=== PATIENT | male | born 1960 | race Caucasian/White ===

== ENCOUNTER → 2024-08-01 | Outpatient (CLI) | payer BC, SELFPAY ==
--- NOTE | 2024-08-01 12:04 | XR_ITS ---
Examination: PA lateral chest 2 views TECHNIQUE: Upright PA lateral chest 2 views Exam date and time: August 01, 2024 1239 hours INDICATIONS: Coughing beginning 4 months ago. FINDINGS: Moderate size The lungs are clear. The osseous structures are intact IMPRESSION: No active disease
[2024-08-01 13:49] LABS: Basophils # (Auto) 0.1 Thou/mm3 (0.0-0.2); Basophils % (Auto) 1 % (0-2.5); Eosinophils # (Auto) 0.1 Thou/mm3 (0.0-0.5); Eosinophils % (Auto) 2 % (0-10); Hematocrit 45.3 % (41.0-53.0); Immature Granulocytes % (Auto) 0 % (0-0); Immature Granulocytes Auto 0.01 Thou/mm3 (0.00-0.00); Lymphocytes # (Auto) 1.9 Thou/mm3 (1.0-4.8); Lymphocytes % (Auto) 41 % (10-50); Mean Corpuscular HGB Conc 35.3 g/dl (31.0-37.0); Mean Corpuscular Volume 91 fL (80-100); Monocytes # (Auto) 0.4 Thou/mm3 (0.0-0.8); Monocytes % (Auto) 8 % (0-12); Neutrophils # (Auto) 2.2 Thou/mm3 (1.8-7.7); Neutrophils % (Auto) 47 % (37-80); Nucleated Red Blood Cell % 0 /100 WBC (0); Platelet Count 191 Thou/mm3 (140-440); RDW Standard Deviation 42.6 fL (35.1-43.9); White Blood Count 4.6 Thou/mm3 (3.8-10.6)
[2024-08-02 13:24] LABS: Cocci Serology, IgM Negative (Negative)
[2024-08-03 13:51] LABS: Cocci Serology, IgG Negative (Negative)
== END | disposition home or self-care (01) ==
LOC: CDIM 12:00 → COPL 12:44
PROVIDERS: PCP Family Medicine; Referring Provider Registered Nurse; Visit Provider Radiology Diagnostic Radiology
DX: R06.02 Shortness of breath (principal); R05.2 Subacute cough; Z21 Asymptomatic human immunodeficiency virus [HIV] infection status
CPT/HCPCS: 36415; 71046; 85025; 86331; 86635; 87205

== ENCOUNTER → 2024-08-02 | Outpatient (CLI) | payer BC, SELFPAY | END | disposition home or self-care (01) | LOC: SLDO 07:20 | PROVIDERS: PCP Family Medicine; Referring Provider Registered Nurse; Visit Provider Registered Nurse | DX: R06.02 Shortness of breath (principal); R05.2 Subacute cough; Z21 Asymptomatic human immunodeficiency virus [HIV] infection status | CPT/HCPCS: 87205 ==

== ENCOUNTER → 2024-09-08 | Outpatient (CLI) | payer BC, SELFPAY ==
[2024-09-08 11:43] LABS: Glucose Estimated Average 114 mg/dL (80-131); Hemoglobin A1C 5.6 % Hgb (4.8-6.0)
[2024-09-08 11:51] LABS: Prostate Specific Antigen 0.47 ng/mL (0-4.00)
== END | disposition home or self-care (01) ==
LOC: COPL 10:16
PROVIDERS: PCP Registered Nurse; Referring Provider Registered Nurse; Visit Provider Registered Nurse
DX: Z00.00 Encounter for general adult medical examination without abnormal findings (principal)
CPT/HCPCS: 36415; 83036; 84153

== ENCOUNTER → 2024-10-26 | Outpatient (CLI) | payer BC, SELFPAY ==
[2024-10-26 16:29] LABS: Basophils % (Auto) 1 % (0-2.5); Eosinophils # (Auto) 0.1 Thou/mm3 (0.0-0.5); Eosinophils % (Auto) 4 % (0-10); Hematocrit 41.1 % (41.0-53.0); Hemoglobin 14.7 g/dL (13.5-16.0); Immature Granulocytes % (Auto) 0 % (0-0); Lymphocytes # (Auto) 1.8 Thou/mm3 (1.0-4.8); Lymphocytes % (Auto) 46 % (10-50); Mean Corpuscular HGB Conc 35.8 g/dl (31.0-37.0); Mean Corpuscular Hemoglobin 32.1 pg (25.0-35.0); Mean Corpuscular Volume 90 fL (80-100); Monocytes # (Auto) 0.3 Thou/mm3 (0.0-0.8); Monocytes % (Auto) 8 % (0-12); Neutrophils # (Auto) 1.6 Thou/mm3 (1.8-7.7); Neutrophils % (Auto) 42 % (37-80); Nucleated Red Blood Cell % 0 /100 WBC (0); Platelet Count 178 Thou/mm3 (140-440); RDW Standard Deviation 43.2 fL (35.1-43.9); Red Blood Count 4.58 Miln/mm3 (4.50-5.90); White Blood Count 3.9 Thou/mm3 (3.8-10.6)
[2024-10-26 16:47] LABS: Alanine Aminotransferase 40 U/L (10-49); Albumin, Serum 4.4 gm/dL (3.4-4.8); Albumin/Globulin Ratio 1.9 (1.2-2.2); Alkaline Phosphatase 70 U/L (46-116); Anion Gap 7 (7-16); Aspartate Amino Transferase 29 U/L (0-34); BUN/Creatinine Ratio 11 Ratio (12-20); Bilirubin,Total 0.4 mg/dL (0.3-1.2); Blood Urea Nitrogen 11 mg/dL (9-23); Calcium 9.8 mg/dL (8.3-10.6); Calcium (Corrected) 9.8 mg/dL (8.5-10.1); Carbon Dioxide 27.8 mMol/L (20.0-31.0); Chloride 107 mMol/L (98-107); Globulin 2.3 gm/dL (2.3-3.5); Glucose 95 mg/dL (74-106); Osmolality,Calculated 282 (275-295); Potassium 4.3 mMol/L (3.4-5.1); Sodium 142 mMol/L (136-145); Total Protein 6.7 gm/dL (5.7-8.2); eGFR > 60 See Note
[2024-10-26 17:08] LABS: Syphilis Nonreactive (Nonreactive)
[2024-10-29 22:06] LABS: CD19 Percentage 18 % (6-29); CD19, Absolute 371 cells/uL (110-660); CD3 Percentage 61 % (57-85); CD3, Absolute 1206 cells/uL (840-3060); CD3-CD16+CD56+ % 20 % (4-25); CD3-CD16+CD56+ (Abs) 399 cells/uL (70-760); CD4 Percentage 30 % (30-61); CD4, Absolute 571 cells/uL (490-1740); CD4/CD8 Ratio 0.91 (0.86-5.00); CD8 Percentage 33 % (12-42); CD8, Absolute 624 cells/uL (180-1170)
[2024-10-30 03:04] LABS: HIV-1 RNA, QN PCR 466 copies/mL
[2024-10-31 07:04] LABS: Lymphocytes, Absolute 1973 cells/uL (850-3900)
[2024-10-31 07:07] LABS: HIV-1 RNA, QN PCR Log 2.67
== END | disposition home or self-care (01) ==
PROVIDERS: PCP Family Medicine; Referring Provider Internal Medicine Infectious Disease; Visit Provider Internal Medicine Infectious Disease
DX: Z21 Asymptomatic human immunodeficiency virus [HIV] infection status (principal)
CPT/HCPCS: 36415; 80053; 85025; 86355; 86357; 86359; 86360; 86780; 87536

== ENCOUNTER → 2024-11-01 | Outpatient (CLI) | payer BC, SELFPAY ==
[2024-11-01 09:16] LABS: Quantiferon-TB* See Sep Rpt
== END | disposition home or self-care (01) ==
PROVIDERS: PCP Family Medicine; Referring Provider Internal Medicine Infectious Disease; Visit Provider Internal Medicine Infectious Disease
DX: Z21 Asymptomatic human immunodeficiency virus [HIV] infection status (principal)
CPT/HCPCS: 86480

== ENCOUNTER → 2024-11-15 | Outpatient (CLI) | payer BC, SELFPAY ==
[2024-11-15 15:11] LABS: Misc Send Out* See Sep Rpt
[2024-11-18 22:06] LABS: CD19 Percentage 17 % (6-29); CD19, Absolute 302 cells/uL (110-660); CD3 Percentage 65 % (57-85); CD3, Absolute 1160 cells/uL (840-3060); CD3-CD16+CD56+ % 19 % (4-25); CD3-CD16+CD56+ (Abs) 343 cells/uL (70-760); CD4 Percentage 33 % (30-61); CD4, Absolute 576 cells/uL (490-1740); CD4/CD8 Ratio 0.98 (0.86-5.00); CD8 Percentage 33 % (12-42); CD8, Absolute 588 cells/uL (180-1170)
[2024-11-19 03:07] LABS: HIV-1 RNA, QN PCR 164 copies/mL
[2024-11-20 06:58] LABS: Lymphocytes, Absolute 1795 cells/uL (850-3900)
[2024-11-20 07:05] LABS: HIV-1 RNA, QN PCR Log 2.21
== END | disposition home or self-care (01) ==
LOC: COPL 14:44
PROVIDERS: PCP Family Medicine; Referring Provider Internal Medicine Infectious Disease; Visit Provider Internal Medicine Infectious Disease
DX: B20 Human immunodeficiency virus [HIV] disease (principal)
CPT/HCPCS: 36415; 86355; 86357; 86359; 86360; 87536

== ENCOUNTER → 2025-05-30 | Outpatient (CLI) | payer MEDICARE, SELFPAY ==
[2025-05-30 07:35] LABS: Quantiferon-TB* See Sep Rpt
[2025-05-30 08:29] LABS: Basophils # (Auto) 0.1 Thou/mm3 (0.0-0.2); Basophils % (Auto) 1 % (0-2.5); Eosinophils # (Auto) 0.2 Thou/mm3 (0.0-0.5); Eosinophils % (Auto) 4 % (0-10); Hematocrit 43.9 % (41.0-53.0); Hemoglobin 15.0 g/dL (13.5-16.0); Immature Granulocytes Auto 0.00 Thou/mm3 (0.00-0.00); Lymphocytes # (Auto) 1.8 Thou/mm3 (1.0-4.8); Lymphocytes % (Auto) 44 % (10-50); Mean Corpuscular HGB Conc 34.2 g/dl (31.0-37.0); Mean Corpuscular Hemoglobin 32.2 pg (25.0-35.0); Mean Corpuscular Volume 94 fL (80-100); Monocytes # (Auto) 0.3 Thou/mm3 (0.0-0.8); Monocytes % (Auto) 7 % (0-12); Neutrophils # (Auto) 1.8 Thou/mm3 (1.8-7.7); Neutrophils % (Auto) 44 % (37-80); Nucleated Red Blood Cell # 0.00 Thou/mm3 (0.00-0.00); Nucleated Red Blood Cell % 0 /100 WBC (0); Platelet Count 158 Thou/mm3 (140-440); RDW Standard Deviation 46.2 fL (35.1-43.9); Red Blood Count 4.66 Miln/mm3 (4.50-5.90); White Blood Count 4.1 Thou/mm3 (3.8-10.6)
[2025-05-30 08:44] LABS: Prostate Specific Antigen 0.53 ng/mL (0-4.00); Vitamin B12 358 pg/mL (211-911); Vitamin D 25 Hydroxy Total 31.4 ng/mL (7.3-40.2)
[2025-05-30 08:45] LABS: Alanine Aminotransferase 29 U/L (10-49); Albumin, Serum 4.3 gm/dL (3.4-4.8); Albumin/Globulin Ratio 2.2 (1.2-2.2); Alkaline Phosphatase 57 U/L (46-116); Anion Gap 9 (7-16); Aspartate Amino Transferase 21 U/L (0-34); BUN/Creatinine Ratio 10 Ratio (12-20); Bilirubin,Total 0.5 mg/dL (0.3-1.2); Blood Urea Nitrogen 12 mg/dL (9-23); Calcium 9.2 mg/dL (8.3-10.6); Calcium (Corrected) 9.2 mg/dL (8.5-10.1); Carbon Dioxide 27.4 mMol/L (20.0-31.0); Cardiac Risk Estimate 2.5 RATIO (4.0-6.7); Chloride 110 mMol/L (98-107); Cholesterol 101 mg/dL (132-200); Creatinine (Component) 1.2 mg/dL (0.6-1.3); Globulin 2.0 gm/dL (2.3-3.5); Glucose 143 mg/dL (74-106); HDL Cholesterol 41 mg/dL (40-60); LDL Cholesterol,Calculated 42 mg/dL (0-130); Osmolality,Calculated 292 (275-295); Potassium 4.4 mMol/L (3.4-5.1); Sodium 146 mMol/L (136-145); Total Protein 6.3 gm/dL (5.7-8.2); Triglycerides 92 mg/dL (30-150); eGFR > 60 See Note
[2025-05-30 09:03] LABS: Syphilis Nonreactive (Nonreactive)
[2025-05-30 11:38] LABS: Cocci Serology, IgM Negative (Negative)
[2025-05-31 10:17] LABS: Cocci Serology, IgG Negative (Negative)
[2025-06-01 15:38] LABS: HIV-1 RNA, QN PCR NOT DETECTED copies/mL
[2025-06-02 17:47] LABS: CD19 Percentage 20 % (6-29); CD19, Absolute 384 cells/uL (110-660); CD3 Percentage 61 % (57-85); CD3, Absolute 1146 cells/uL (840-3060); CD3-CD16+CD56+ % 17 % (4-25); CD3-CD16+CD56+ (Abs) 331 cells/uL (70-760); CD4 Percentage 30 % (30-61); CD4, Absolute 553 cells/uL (490-1740); CD4/CD8 Ratio 0.98 (0.86-5.00); CD8 Percentage 31 % (12-42); CD8, Absolute 565 cells/uL (180-1170)
[2025-06-04 09:16] LABS: HIV-1 RNA, QN PCR Log NOT DETECTED
[2025-06-04 09:18] LABS: Lymphocytes, Absolute 1878 cells/uL (850-3900)
== END | disposition home or self-care (01) ==
LOC: COPL 07:12
PROVIDERS: PCP Family Medicine; Referring Provider Internal Medicine Cardiovascular Disease; Visit Provider Registered Nurse
DX: R73.01 Impaired fasting glucose (principal)
CPT/HCPCS: 36415; 80053; 80061; 82306; 82607; 84153; 85025; 86331; 86355; 86357; 86359; 86360; 86480; 86635; 86780; 87536

== ENCOUNTER → 2025-06-06 | Outpatient (CLI) | payer MEDICARE, SELFPAY ==
[2025-06-06 12:08] LABS: Glucose Estimated Average 123 mg/dL (80-131); Hemoglobin A1C 5.9 % Hgb (4.8-6.0)
== END | disposition home or self-care (01) ==
LOC: COPL 11:07
PROVIDERS: PCP Registered Nurse; Referring Provider Registered Nurse; Visit Provider Registered Nurse
DX: R73.01 Impaired fasting glucose (principal)
CPT/HCPCS: 36415; 83036

== ENCOUNTER → 2025-08-16 | Outpatient (CLI) | payer MEDICARE, SELFPAY ==
[2025-08-16 08:52] LABS: Cardiac Risk Estimate 2.3 RATIO (4.0-6.7); Cholesterol 99 mg/dL (132-200); HDL Cholesterol 44 mg/dL (40-60); LDL Cholesterol,Calculated 36 mg/dL (0-130); Triglycerides 94 mg/dL (30-150)
== END | disposition home or self-care (01) ==
PROVIDERS: PCP Family Medicine; Referring Provider Internal Medicine Cardiovascular Disease; Visit Provider Internal Medicine Cardiovascular Disease
DX: E78.00 Pure hypercholesterolemia, unspecified (principal)
CPT/HCPCS: 36415; 80061